=== PATIENT | female | born 1955 | race Caucasian/White ===

== ENCOUNTER 2019-10-29 10:35 | Emergency (ER) | payer BC ==
[~2019-10-29] VITALS: Ht 162.6 cm; Wt 73.0 kg
[2019-10-29] MEDS ORDERED: LOSARTAN-HCTZ1 EACH PO (10:42)
[2019-10-29] MEDS ORDERED: TOPROL XL100 MG PO (10:42)
[2019-10-29] MEDS ORDERED: NORCO 5-325 TA1 EAC2 PO (12:18)
[2019-10-29] MEDS ORDERED: XANAX 0.5 MG0.5 M1 PO (12:30)
[2019-10-29] MEDS ORDERED: IMIPRAMINE HCL25 MG PO (12:31)
[2019-10-29] MEDS ORDERED: SIMVASTATIN40 MG PO (12:32)
[2019-10-29 12:33] VITALS: BP 131/77
== END 2019-10-29 13:30 | disposition home or self-care (01) ==
LOC: ER 10:35
DX: S42.242A 4-part fracture of surgical neck of left humerus, initial encounter for closed fracture (principal); M25.561 Pain in right knee; M25.562 Pain in left knee; I10 Essential (primary) hypertension; Z90.49 Acquired absence of other specified parts of digestive tract; Z90.711 Acquired absence of uterus with remaining cervical stump; Z79.899 Other long term (current) drug therapy; Z88.0 Allergy status to penicillin; W10.8XXA Fall (on) (from) other stairs and steps, initial encounter; Y93.01 Activity, walking, marching and hiking; Y92.009 Unspecified place in unspecified non-institutional (private) residence as the place of occurrence of the external cause; Y99.8 Other external cause status